=== PATIENT | male | born 1965 | race Caucasian/White ===

== ENCOUNTER → 2018-07-09 11:35 | Outpatient (CLI) | payer OTHER, SELFPAY ==
[2018-07-09 12:27] LABS: Hemoglobin A1C% w Est Avg Glu 5.3 % (4.0-6.0)
== END ==
PROVIDERS: Visit Provider Anesthesiology
DX: R73.03 Prediabetes (principal)
CPT/HCPCS: 36415; 83036; 84153

== ENCOUNTER → 2021-02-08 10:47 | Outpatient (CLI) | payer OTHER, SELFPAY ==
[2021-02-08] MEDS: COVID-19 VACC, Ad26(JANSSEN)/PF 0.5 ML IM (10:50)
== END ==
PROVIDERS: PCP Family Medicine; Visit Provider Internal Medicine
DX: Z23 Encounter for immunization (principal)
CPT/HCPCS: 0031A; 91303

== ENCOUNTER → 2021-05-04 12:31 | Outpatient (CLI) | payer OTHER, SELFPAY ==
[2021-05-04 13:39] LABS: Prostate Specific Antigen Scrn 1.78 ng/mL (0.1-4.0)
== END ==
PROVIDERS: PCP Family Medicine; Referring Provider Specialist; Visit Provider Specialist
DX: Z12.5 Encounter for screening for malignant neoplasm of prostate (principal)
CPT/HCPCS: 36415; G0103

== ENCOUNTER → 2021-05-18 09:02 | Outpatient (CLI) | payer OTHER, SELFPAY ==
[2021-05-18 09:58] LABS: Add Manual Diff / Slide Review NO; Basophils Absolute Auto 0 /uL (0-100); Basophils Percent Auto 0.9 % (0-2); Eosinophils Absolute Auto 200 /uL (0-450); Eosinophils Percent Auto 3.5 % (2-4); Hematocrit 43.8 % (41-53); Hemoglobin 14.9 g/dL (13.5-17.5); Lymphocytes Absolute Auto 1300 /uL (1100-4500); Lymphocytes Percent Auto 30.5 % (25-40); Mean Corpuscular Hemoglobin 32.4 PG (26-34); Mean Corpuscular Volume 95.3 fL (80-100); Monocytes Absolute Auto 400 /uL (0-900); Monocytes Percent Auto 10.4 % (3-14); Neutrophils Absolute Auto 2300 /uL (1500-7000); Neutrophils Percent Auto 54.7 % (50-75); Platelet Count 238 X10^3/uL (150-400); Red Blood Cell Count 4.59 X10^6/uL (4.5-5.9); Red Cell Distribution Width 13.1 % (11.6-14.8); White Blood Cell Count 4.3 X10^3/uL (4.5-11.0)
[2021-05-18 10:17] LABS: Alanine Aminotransferase 23 IU/L (<50); Albumin 4.3 g/dL (3.5-5.0); Albumin Globulin Ratio 1.4 (1.0-2.8); Alkaline Phosphatase 68 U/L (38-126); Aspartate Aminotransferase 22 IU/L (17-59); BUN Creatinine Ratio 15.9 (6-22); Bilirubin Total 0.7 mg/dL (0.2-1.3); Blood Urea Nitrogen 13 mg/dL (9-20); Calcium 9.1 mg/dL (8.4-10.2); Carbon Dioxide 29 mmol/L (22-32); Chloride 103 mmol/L (98-107); Cholesterol 183 mg/dL (140-199); Estimated Glomerular Filt Rate > 60.0 mL/min (>60); Globulin 3.1 g/dL (1.7-4.1); Glucose 111 mg/dL (70-100); HDL Cholesterol 77 mg/dL (40-60); HEMOLYSIS < 15 (0-50); LDL Cholesterol Calculated 77 mg/dL (<100); Potassium 4.2 mmol/L (3.4-5.1); Sodium 138 mmol/L (137-145); Total Protein 7.4 g/dL (6.3-8.2); Triglycerides 145 mg/dL (35-150)
[2021-05-18 10:18] LABS: Creatinine Urine Random 61.5 mg/dL
[2021-05-18 10:23] LABS: Hemoglobin A1C% w Est Avg Glu 5.1 % (4.0-6.0)
[2021-05-18 10:28] LABS: Microalbumin Urine Random < 0.6 mg/dL (0-1.6)
[2021-05-18 10:44] LABS: TSH w/ Reflex to FT4 1.86 uIU/mL (0.47-4.68)
== END ==
PROVIDERS: PCP Family Medicine; Referring Provider Family Medicine; Visit Provider Family Medicine
DX: H93.19 Tinnitus, unspecified ear (principal); I10 Essential (primary) hypertension
CPT/HCPCS: 36415; 80053; 80061; 82043; 82570; 83036; 84443; 85025

== ENCOUNTER → 2021-11-05 07:58 | Outpatient (CLI) | payer OTHER, SELFPAY ==
[2021-11-05 09:07] LABS: Prostate Specific Antigen 2.08 ng/mL (0.10-4.00)
== END ==
PROVIDERS: PCP Family Medicine; Referring Provider Specialist; Visit Provider Specialist
DX: R97.20 Elevated prostate specific antigen [PSA] (principal)
CPT/HCPCS: 36415; 84153

== ENCOUNTER → 2023-06-12 08:21 | Outpatient (CLI) | payer OTHER, SELFPAY ==
[2023-06-12 08:45] LABS: Add Manual Diff / Slide Review NO; Basophils Absolute Auto 0 /uL (0-100); Basophils Percent Auto 0.6 % (0-2); Eosinophils Absolute Auto 200 /uL (0-450); Eosinophils Percent Auto 4.1 % (2-4); Hematocrit 43.4 % (41-53); Hemoglobin 15.1 g/dL (13.5-17.5); Lymphocytes Absolute Auto 1300 /uL (1100-4500); Lymphocytes Percent Auto 26.5 % (25-40); Mean Corpuscular HGB Conc 34.9 % (30-36); Mean Corpuscular Hemoglobin 32.9 PG (26-34); Mean Corpuscular Volume 94.4 fL (80-100); Monocytes Absolute Auto 500 /uL (0-900); Neutrophils Absolute Auto 2800 /uL (1500-7000); Neutrophils Percent Auto 57.8 % (50-75); Platelet Count 286 X10^3/uL (150-400); Red Blood Cell Count 4.59 X10^6/uL (4.5-5.9); White Blood Cell Count 4.8 X10^3/uL (4.5-11.0)
[2023-06-12 09:06] LABS: Alanine Aminotransferase 38 IU/L (<50); Albumin 4.2 g/dL (3.5-5.0); Albumin Globulin Ratio 1.4 (1.0-2.8); Alkaline Phosphatase 64 U/L (38-126); Aspartate Aminotransferase 24 IU/L (17-59); BUN Creatinine Ratio 14.4 (6-22); Bilirubin Total 0.9 mg/dL (0.2-1.3); Blood Urea Nitrogen 13 mg/dL (9-20); Calcium 9.2 mg/dL (8.4-10.2); Carbon Dioxide 29 mmol/L (22-32); Chloride 101 mmol/L (98-107); Cholesterol 189 mg/dL (140-199); Estimated Glomerular Filt Rate > 60 mL/min (>60); Globulin 3.1 g/dL (1.7-4.1); Glucose 115 mg/dL (70-100); HDL Cholesterol 65 mg/dL (40-60); HEMOLYSIS < 15 (0-50); LDL Cholesterol Calculated 92 mg/dL (<100); Potassium 4.2 mmol/L (3.4-5.1); Sodium 138 mmol/L (137-145); Total Protein 7.3 g/dL (6.3-8.2); Triglycerides 159 mg/dL (35-150)
[2023-06-12 09:31] LABS: Prostate Specific Antigen Scrn 2.24 ng/mL (0.1-4.0)
[2023-06-12 09:32] LABS: TSH w/ Reflex to FT4 1.84 uIU/mL (0.47-4.68)
== END ==
PROVIDERS: PCP Family Medicine; Referring Provider Family Medicine; Visit Provider Family Medicine
DX: I10 Essential (primary) hypertension (principal); Z80.42 Family history of malignant neoplasm of prostate; Z00.01 Encounter for general adult medical examination with abnormal findings; K21.9 Gastro-esophageal reflux disease without esophagitis; Z12.5 Encounter for screening for malignant neoplasm of prostate
CPT/HCPCS: 36415; 80053; 80061; 84443; 85025; G0103

== ENCOUNTER 2023-09-10 06:42 | Day surgery (SDC) | payer OTHER, SELFPAY ==
--- NOTE | 2023-09-10 | PATH_ITS ---
[facility] Accession Number: [id number] No. of containers..02 Tissue . 01 Material submitted: . PART A: colon - CECAL POLYP PART B: colon - DESCENDING POLYP . 01 Diagnosis: A. Cecal Polyp: Colonic mucosa with prominent benign lymphoid aggregates. Negative for dysplasia or malignancy. Additional step sections examined. . B. Descending Colon Polyp: Benign submucosal lipoma. Negative for serrated lesion, dysplasia or malignancy. MRV 09/22/2023 1034 Local . 01 Electronically signed: . Buck Duong MD, PhD, Pathologist NPI- [id number] . 01 Gross description: . Part A: CECAL POLYP: Received in formalin is multiple fragment(s) of capone, soft tissue measuring 1.2 x 0.5 x 0.1 cm in aggregate submitted entirely in 1 cassette(s) Part B: DESCENDING POLYP: Received in formalin is 1 fragment(s) of capone, soft tissue measuring 1.2 x 1.0 x 1.0 cm which is serially sectioned and submitted entirely in 1 cassette(s) /AAY 09/11/2023 2241 Local . 01 Pathologist provided ICD-10: K63.5 . 01 CPT . 078672, 192566 Specimen Comment: A courtesy copy of this report has been sent to [phone] Performed at: 01 [facility] [address] [place] [address], [place], [place] [id number] MD Amadou Moss MD Phone: [phone]
[2023-09-10 07:15] VITALS: BP 152/82; PULSE 66; RESP 16; TEMP 36.5; O2SAT 98; BMI 24.4
[2023-09-10] MEDS: LACTATED RINGERS 1,000 ML 150 ML IV (07:20)
--- NOTE | 2023-09-10 07:36 | PM.HP.1 ---
History of Present Illness History of Present Illness Date Patient Seen: 09/10/23 Time Patient Seen: 07:36 Chief complaint: Colonoscopy Narrative: Griffin is a 58-year-old man who is here for colonoscopy. He has never had 1 before. He believes his father had colon cancer. [facility] Medical History (Updated 09/10/23 @ 07:36 by Teddy Hope MD) Peyronie's Disease Family history of prostate cancer BPH w urinary obs/LUTS Acne (~1979) Allergies (~1989) Fractures Chicken pox (~1971) Hypertension Tinnitus (~2009) Surgical History Hx of eye surgery Family History Father Congestive heart failure History of heart disease Mother Hepatitis Hyperlipidemia Hypertension Cancer Renal calculi Social History marital status: number of children: 2 household members: spouse occupational status: employed sexual history: See [facility] Smoking Status: Never smoker alcohol intake: current caffeine: Yes Type(s) of exercise: regular exercise frequency: 5-6 times per week duration: 60-90 minutes/day Meds Home Medications and Allergies Home Medications Medication Instructions Recorded Confirmed Type amlodipine 5 mg tablet See Rx Instructions .Route 04/03/23 09/10/23 Rx .COMPLEX #135 tabs omeprazole 20 mg capsule,delayed See Rx Instructions PO DAILY #90 09/08/23 09/10/23 Rx release caps Allergies Allergy/AdvReac Type Severity Reaction Status Date / Time No Known Drug Allergies Allergy Verified 09/10/23 07:13 Exam Vital Signs (past 8 hours): - 09/10/23 07:15 Temperature 97.7 F Pulse Rate 66 Respiratory Rate 16 Blood Pressure 152/82 H Pulse Oximetry 98 Oxygen Delivery Method Room Air Oxygen Delivery Method Room Air Const General: healthy appearing Assessment & Plan Assessment and plan (1) Family history of colon cancer: Status: Acute Plan We reviewed the risks and benefits of colonoscopy for colon cancer screening and family history of colon cancer and he would like to proceed.
[2023-09-10 08:05] VITALS: BP 131/86; PULSE 71; RESP 15; TEMP 36.5; O2SAT 96
--- NOTE | 2023-09-10 08:07 | PM.OP.COLON ---
Operative Date/Time/Diagnoses Date of procedure: 09/10/23 Time of procedure: 08:08 Pre-op diagnosis: Family history of colon cancer Post-op diagnosis: same Procedure & Clinicians Study performed: Colonoscopy Same procedure as scheduled: Yes Surgeon: Teddy Hope Procedure Notes Procedure in detail: Surgeon: Teddy Hope MD Anesthesia: Kash Miranda CRNA Procedure: The patient was brought to the endoscopy suite, placed in left lateral decubitus position. The patient was connected to monitoring devices. A time-out was performed. Sedation was administered. Once the patient was adequately sedated, a digital rectal exam was performed and was normal. The scope was then inserted and advanced to the cecum where the appendiceal orifice was identified and photographed. The scope was then slowly withdrawn over greater than 6 minutes. The mucosa was thoroughly inspected. There was a 4 mm polyp in the cecum removed with a cold snare. There was a 1.5 cm polyp in the descending colon removed with a hot snare. No other abnormalities were seen. The scope was retroflexed in the rectum. No other abnormalities were seen. The scope was straightened and removed. The patient was awakened and brought to recovery. Scope withdrawal time: 13 minutes Sedation time: 20 minutes EBL: 2 mL Findings: 4 mm polyp in the cecum and 1.5 cm polyp in the descending colon Post-procedure Disposition: PACU
[2023-09-10 08:10] VITALS: BP 118/81; PULSE 66; RESP 15; O2SAT 97
[2023-09-10 08:15] VITALS: BP 115/76; PULSE 66; RESP 17; O2SAT 97
[2023-09-10 08:30] VITALS: BP 120/80; PULSE 62; RESP 13; TEMP 36.5; O2SAT 98
== END 2023-09-10 08:35 | disposition home or self-care (01) ==
PROVIDERS: PCP Family Medicine; Referring Provider Surgery; Visit Provider Surgery
PROC: 0DJD8ZZ Inspection of Lower Intestinal Tract, Via Natural or Artificial Opening Endoscopic (ICD-10-PCS; CPT 45378; principal; 2023-09-10 07:45)
DX: Z12.11 Encounter for screening for malignant neoplasm of colon (principal); Z80.0 Family history of malignant neoplasm of digestive organs; D12.4 Benign neoplasm of descending colon
CPT/HCPCS: 45385; J2704

== ENCOUNTER → 2024-06-09 08:18 | Outpatient (CLI) | payer OTHER, SELFPAY ==
[2024-06-09 09:57] LABS: Add Manual Diff / Slide Review NO; Basophils Absolute Auto 0 /uL (0-100); Basophils Percent Auto 0.7 % (0-2); Eosinophils Absolute Auto 200 /uL (0-450); Eosinophils Percent Auto 4.9 % (2-4); Hematocrit 42.7 % (41-53); Lymphocytes Absolute Auto 1500 /uL (1100-4500); Lymphocytes Percent Auto 33.2 % (25-40); Mean Corpuscular Hemoglobin 32.9 PG (26-34); Mean Corpuscular Volume 93.9 fL (80-100); Monocytes Absolute Auto 400 /uL (0-900); Monocytes Percent Auto 9.5 % (3-14); Neutrophils Absolute Auto 2300 /uL (1500-7000); Neutrophils Percent Auto 51.7 % (50-75); Platelet Count 285 X10^3/uL (150-400); Red Blood Cell Count 4.55 X10^6/uL (4.5-5.9); White Blood Cell Count 4.5 X10^3/uL (4.5-11.0)
[2024-06-09 10:12] LABS: Alanine Aminotransferase 26 IU/L (<50); Albumin Globulin Ratio 1.4 (1.0-2.8); Alkaline Phosphatase 69 U/L (38-126); Aspartate Aminotransferase 21 IU/L (17-59); BUN Creatinine Ratio 15.2 (6-22); Bilirubin Total 0.9 mg/dL (0.2-1.3); Blood Urea Nitrogen 14 mg/dL (9-20); Calcium 9.3 mg/dL (8.4-10.2); Carbon Dioxide 28 mmol/L (22-32); Chloride 102 mmol/L (98-107); Cholesterol 172 mg/dL (140-199); Estimated Glomerular Filt Rate > 60 mL/min (>60); Globulin 2.9 g/dL (1.7-4.1); Glucose 107 mg/dL (70-100); HDL Cholesterol 57 mg/dL (40-60); HEMOLYSIS < 15 (0-50); LDL Cholesterol Calculated 89 mg/dL (<100); Potassium 4.6 mmol/L (3.4-5.1); Sodium 138 mmol/L (137-145); Total Protein 6.9 g/dL (6.3-8.2); Triglycerides 131 mg/dL (35-150)
[2024-06-09 10:43] LABS: Prostate Specific Antigen Scrn 2.18 ng/mL (0.1-4.0)
[2024-06-09 10:44] LABS: TSH w/ Reflex to FT4 2.12 uIU/mL (0.47-4.68)
== END ==
PROVIDERS: PCP Family Medicine; Referring Provider Family Medicine; Visit Provider Family Medicine
DX: N48.6 Induration penis plastica (principal); K21.9 Gastro-esophageal reflux disease without esophagitis; N40.1 Benign prostatic hyperplasia with lower urinary tract symptoms; Z12.5 Encounter for screening for malignant neoplasm of prostate; I10 Essential (primary) hypertension; N13.8 Other obstructive and reflux uropathy
CPT/HCPCS: 36415; 80053; 80061; 84443; 85025; G0103

== ENCOUNTER → 2025-06-30 08:11 | Outpatient (CLI) | payer OTHER, SELFPAY ==
[2025-06-30 09:12] LABS: Add Manual Diff / Slide Review NO; Hematocrit 44.1 % (41-53); Hemoglobin 15.4 g/dL (13.5-17.5); Lymphocytes Absolute Auto 1500 /uL (1100-4500); Mean Corpuscular HGB Conc 34.9 % (30-36); Mean Corpuscular Hemoglobin 32.0 PG (26-34); Mean Corpuscular Volume 91.8 fL (80-100); Platelet Count 293 X10^3/uL (150-400)
[2025-06-30 09:38] LABS: Alanine Aminotransferase 28 IU/L (<50); Albumin 4.3 g/dL (3.5-5.0); Albumin Globulin Ratio 1.3 (1.0-2.8); Alkaline Phosphatase 72 U/L (38-126); Blood Urea Nitrogen 16 mg/dL (9-20); Calcium 9.1 mg/dL (8.4-10.2); Carbon Dioxide 30 mmol/L (22-32); Chloride 101 mmol/L (98-107); Cholesterol 184 mg/dL (140-199); Estimated Glomerular Filt Rate > 60 mL/min (>60); Globulin 3.2 g/dL (1.7-4.1); Glucose 112 mg/dL (70-99); HDL Cholesterol 57 mg/dL (40-60); HEMOLYSIS < 15 (0-50); Potassium 4.3 mmol/L (3.4-5.1); Sodium 138 mmol/L (137-145); Total Protein 7.5 g/dL (6.3-8.2); Triglycerides 229 mg/dL (35-150)
[2025-06-30 10:06] LABS: TSH w/ Reflex to FT4 1.74 uIU/mL (0.47-4.68)
[2025-06-30 11:39] LABS: Microalbumi Creatinin Ratio Ur 3.0 ug/mg CR (<30)
== END ==
PROVIDERS: PCP Family Medicine; Referring Provider Family Medicine; Visit Provider Family Medicine
DX: Z00.01 Encounter for general adult medical examination with abnormal findings (principal); K21.9 Gastro-esophageal reflux disease without esophagitis; Z80.42 Family history of malignant neoplasm of prostate; N40.1 Benign prostatic hyperplasia with lower urinary tract symptoms; N13.8 Other obstructive and reflux uropathy; I10 Essential (primary) hypertension
CPT/HCPCS: 36415; 80053; 80061; 82043; 82570; 84443; 85025